=== PATIENT | female | born 1945 | race Caucasian/White ===

== ENCOUNTER 2020-12-22 23:19 | Emergency (ER) | payer BC | END 2020-12-23 00:03 | disposition home or self-care (01) | LOC: MADERS 23:19 | DX: S90.212A Contusion of left great toe with damage to nail, initial encounter (principal); S90.211A Contusion of right great toe with damage to nail, initial encounter; K21.9 Gastro-esophageal reflux disease without esophagitis; E78.5 Hyperlipidemia, unspecified; I10 Essential (primary) hypertension; G47.30 Sleep apnea, unspecified; M48.00 Spinal stenosis, site unspecified; E11.40 Type 2 diabetes mellitus with diabetic neuropathy, unspecified; Z87.442 Personal history of urinary calculi; Z79.899 Other long term (current) drug therapy; X58.XXXA Exposure to other specified factors, initial encounter | CPT/HCPCS: 99283 ==